=== PATIENT | male | born 1950 | race African-American/Black ===

== ENCOUNTER → 2019-01-23 | Outpatient (CLI) | payer OTHER ==
[~2019-01-23] MED LIST: AMLODIPINE BESY10 MG OR; ATENOLOL 25 MG25 M1; BENICAR20 MG PO; BENICAR40 MG OR; CARVEDILOL12.5 MG PO; CODEINE; COUMADIN 5 MG TA5 M1; COUMADIN OR; ELIQUIS5 MG PO; FLAGYL500 MG PO; FLECAINIDE ACE100 MG PO; GUAIFENESIN; HYDRALAZINE 5050 MG PO; IMDUR 60 MG TAB60 M1; IMDUR 60 MG TAB60 M1 OR; JANTOVEN2.5 MG PO; JANTOVEN5 MG PO; K-DUR10 ME1 PO; LASIX 40 MG TAB40 MG OR; LIPITOR 20 MG T20 M1 PO; LISINOPRIL40 MG; LOPRESSOR OR; LOSARTAN POTAS100 MG PO; LOVAZA1000 MG PO; MAGNESIUM OXID200 MG OR; METOPROLOL SUC200 MG PO; MULTAQ400 MG; NORVASC10 MG; OMEPRAZOLE40 MG PO; PACERONE 200 M200 M1 PO; PREDNISOLONE 5 M5 MG PO; SIMVASTATIN40 MG PO; TESSALON PERLE100 MG PO; TIKOSYN.25 PO; TOPROL XL50 MG PO; VIAGRA100 MG; VIAGRA100 MG OR; VIAGRA100 MG PO; ZOCOR OR
== END ==
LOC: RAD 08:56
DX: N28.1 Cyst of kidney, acquired (principal); R05 Cough; R16.2 Hepatomegaly with splenomegaly, not elsewhere classified; Z95.0 Presence of cardiac pacemaker